=== PATIENT | female | born 1960 | race African-American/Black ===

== ENCOUNTER 2018-09-27 09:13 | Emergency (ER) | payer BC, MEDICAID ==
[~2018-09-27] VITALS: Ht 165.1 cm; Wt 70.0 kg
[2018-09-27] MEDS ORDERED: LIDOCAINE 1%/EPI 1:100,000 10 ML VIAL IJ ONE (10:15)
[2018-09-27] MEDS ORDERED: BACITRACIN ZINC OINT UDPKT TOP ONE (10:15)
[2018-09-27] MEDS ORDERED: LIDOCAINE HCL/EPINEPHRINE 1%-EPI 1:100,000 20 ML VIAL INFIL ONE (10:26)
[2018-09-27] MEDS ORDERED: HYDROCODONE/ACETAMINOPHEN 5/325MG TABLET PO ONE (13:30)
[2018-09-27 13:41] VITALS: BP 130/85
== END 2018-09-27 14:19 | disposition home or self-care (01) ==
LOC: ER 09:13
DX: S01.511A Laceration without foreign body of lip, initial encounter (principal); M25.532 Pain in left wrist; R51 Headache; M25.512 Pain in left shoulder; V28.4XXA Motorcycle driver injured in noncollision transport accident in traffic accident, initial encounter; Y93.55 Activity, bike riding; Y92.89 Other specified places as the place of occurrence of the external cause
CPT/HCPCS: 12011; 29125; 70450; 70486; 71045; 72125; 73030; 73110; 99284; J3490; Z7610

== ENCOUNTER 2018-09-28 14:28 | Emergency (ER) | payer BC, MEDICAID ==
[~2018-09-28] VITALS: Ht 165.1 cm; Wt 68.0 kg
[2018-09-28 16:37] VITALS: BP 120/77
== END 2018-09-28 16:40 | disposition home or self-care (01) ==
LOC: ER 14:28
DX: M79.10 Myalgia, unspecified site (principal); M79.18 Myalgia, other site; F12.10 Cannabis abuse, uncomplicated; Z88.6 Allergy status to analgesic agent; Z98.890 Other specified postprocedural states
CPT/HCPCS: 29125; 99283

== ENCOUNTER 2018-10-13 10:15 | Emergency (ER) | payer BC, MEDICAID ==
[~2018-10-13] VITALS: Ht 165.1 cm; Wt 66.0 kg
[2018-10-13 10:29] VITALS: BP 121/80
== END 2018-10-13 11:56 | disposition home or self-care (01) ==
LOC: ER 10:15
DX: Z48.00 Encounter for change or removal of nonsurgical wound dressing (principal); R03.0 Elevated blood-pressure reading, without diagnosis of hypertension; F12.90 Cannabis use, unspecified, uncomplicated
CPT/HCPCS: 99281

== ENCOUNTER 2019-03-09 14:02 | Emergency (ER) | payer BC, MEDICAID ==
[~2019-03-09] VITALS: Ht 165.1 cm; Wt 70.0 kg
[2019-03-09] MEDS ORDERED: CLINDAMYCIN HCL 150MG CAPSULE PO ONE (16:15)
[2019-03-09] MEDS ORDERED: ACETAMINOPHEN 325MG TABLET PO ONE (16:15)
[2019-03-10 09:00] VITALS: BP 102/73
== END 2019-03-10 09:41 | disposition home or self-care (01) ==
LOC: ER 15:46
DX: K13.0 Diseases of lips (principal); Z59.0 Homelessness
CPT/HCPCS: 99283

== ENCOUNTER 2024-10-04 21:06 | Emergency (ER) | payer BC, MEDICARE ==
[~2024-10-04] VITALS: Ht 165.1 cm; Wt 82.2 kg
[2024-10-04 21:08] VITALS: BP 150/78; PULSE 74; RESP 16; TEMP 36.7; O2SAT 97; O2SAT 98
[2024-10-04] MEDS ORDERED: IBUP-2028 MT (21:39)
[2024-10-04] MEDS ORDERED: HYDR-4001 MT (21:39)
[2024-10-04] MEDS: HYDROCODONE/ACETAMINOPHEN 5/325MG TABLET PO ONE (22:01)
[2024-10-04] MEDS: IBUPROFEN 400MG TABLET PO ONE (22:01)
== END 2024-10-04 22:44 | disposition home or self-care (01) ==
LOC: ER 21:06
DX: S69.91XA Unspecified injury of right wrist, hand and finger(s), initial encounter (principal); T30.0 Burn of unspecified body region, unspecified degree; Z79.899 Other long term (current) drug therapy; Z98.890 Other specified postprocedural states; Z88.6 Allergy status to analgesic agent; W86.8XXA Exposure to other electric current, initial encounter; Y93.89 Activity, other specified; Y92.89 Other specified places as the place of occurrence of the external cause; Y99.8 Other external cause status
CPT/HCPCS: 99283